=== PATIENT | female | born 2000 | race African-American/Black ===

== ENCOUNTER 2021-03-18 17:45 | Emergency (ER) | payer BC ==
[~2021-03-18] VITALS: Ht 157.5 cm; Wt 68.0 kg
[2021-03-18 18:02] VITALS: BP 131/78
== END 2021-03-18 19:09 | disposition home or self-care (01) ==
LOC: ER 17:45
DX: M25.512 Pain in left shoulder (principal); X50.0XXA Overexertion from strenuous movement or load, initial encounter; Y93.89 Activity, other specified; Y92.89 Other specified places as the place of occurrence of the external cause; Y99.0 Civilian activity done for income or pay